=== PATIENT | male | born 1950 | race Caucasian/White ===

== ENCOUNTER 2020-06-23 16:03 | Emergency (ER) | payer OTHER ==
--- NOTE | 2020-06-23 17:41 | ER ---
Nurse's Notes [facility] Name: Huan Haynes Sr Age: 70 yrs Sex: Male : 1950 Arrival Date: 06/23/2020 Time: 16:09 Bed 18 Private MD: Diagnosis: Pain in left shoulder Presentation: 06/23 16:16 Chief complaint: Patient states: Left shoulder pain continues since fall April 12. Saw ll1 Dr. Bolaños initially, x-ray was negative. No new trauma or falls. PMS intact. Coronavirus screen: Client denies travel out of the [place] in the last 14 days. At this time, the client does not indicate any symptoms associated with coronavirus-19. Ebola Screen: Patient denies travel to an Ebola-affected area in the 21 days before illness onset. Initial Sepsis Screen: Does the patient meet any 2 criteria? No. Patient's initial sepsis screen is negative. Risk Assessment: Do you want to hurt yourself or someone else? Patient reports no desire to harm self or others. Onset of symptoms was April 12, 2020. 16:16 Method Of Arrival: Ambulatory [facility] 16:16 Acuity: MICHELINE 4 ll1 Historical: - Allergies: 16:19 No Known Allergies; ll1 - PMHx: 16:19 Hypertension; High Cholesterol; ll1 - PSHx: 16:19 Hernia repair; back surgery; ll1 - Immunization history:: Flu vaccine is up to date. - Social history:: Smoking status: Patient denies any tobacco usage or history of. Patient/guardian denies using alcohol, street drugs. Screenin:00 Abuse screen: Denies threats or abuse. Denies injuries from another. Nutritional jr10 screening: No deficits noted. Tuberculosis screening: No symptoms or risk factors identified. Fall Risk None identified. Assessment: 18:00 General: Appears in no apparent distress. Behavior is calm, cooperative, appropriate jr10 for age. Pain: Complains of pain in anterior aspect of left shoulder and posterior aspect of left shoulder Pain began 2 months. Respiratory: Airway is patent Respiratory effort is even, unlabored, Respiratory pattern is regular, symmetrical. Derm: No deficits noted. No signs and/or symptoms reported regarding the dermatologic system. Musculoskeletal: No deficits noted. Circulation, motion, and sensation intact. Capillary refill < 3 seconds, Range of motion: intact in all extremities, Swelling absent. Vital Signs: 16:16 BP 141 / 102; Pulse 74; Resp 18; Temp 98.2; Pulse Ox 98% ; Weight 107.95 kg; Height 5 ll1 ft. 8 in. (172.72 cm); Pain 6/10; 18:18 BP 152 / 98; Pulse 75; Resp 18; Pulse Ox 98% ; jr10 16:16 Body Mass Index 36.19 (107.95 kg, 172.72 cm) 1 ED Course: 16:09 Patient arrived in ED. mr 16:18 Triage completed. ll1 16:19 Arm band placed on. 1 17:22 Shaquille Quinones PA is PHCP. [facility] 17:22 Hayder Johnson MD is Attending Physician. [facility] 17:40 Lev Figueroa MD is Referral Physician. enrique 17:57 Jeanne Abel, AWILDA is Primary Nurse. jr10 18:00 Patient has correct armband on for positive identification. Bed in low position. Call jr10 light in reach. Side rails up X2. 18:18 No provider procedures requiring assistance completed. Patient did not have IV access jr10 during this emergency room visit. Administered Medications: 18:00 Drug: morphine 4 mg Route: IM; Site: left deltoid; jr10 18:19 Follow up: Response: No adverse reaction jr10 18:00 Drug: Zofran (Ondansetron) 4 mg Route: PO; jr10 18:19 Follow up: Response: No adverse reaction [facility] Outcome: 17:41 Discharge ordered by MD. [facility] 18:19 Discharged to home ambulatory. jr10 18:19 Condition: good 18:19 Discharge instructions given to patient, Instructed on discharge instructions, follow up and referral plans. Demonstrated understanding of instructions, follow-up care, medications, Prescriptions given X 1. 18:19 Patient left the ED. jr10 Signatures: Shaquille Quinones PA PA jmm Rivera, Mary Alexis Russell, AWILDA RN 1 Jeanne Abel RN RN [facility]
--- NOTE | 2020-06-23 17:41 | EDPHYS ---
Physician Documentation [facility] Name: Huan Haynes Sr Age: 70 yrs Sex: Male : 1950 Arrival Date: 06/23/2020 Time: 16:09 Bed 18 Private MD: ED Physician Hayder Johnson HPI: 06/23 17:36 This 70 yrs old Male presents to ER via Ambulatory with complaints of Fall jmm Injury, Shoulder Pain. 17:36 Details of fall: The patient fell from an upright position. Onset: The symptoms/episode jmm began/occurred acutely, 1 month(s) ago. Associated injuries: The patient sustained shoulder pain. This is a 70 year old male with a history of htn, hlp that presents to the ED with complaints of left shoulder pain which has been ongoing since a fall in April 29. Patient states having ongoing pain. Patient asked pcp for pain medication but was declined. Patient has not seen an orthopedic surgeon since the injury. Denies any new injury. Denies chest pain. . Historical: - Allergies: 16:19 No Known Allergies; ll1 - PMHx: 16:19 Hypertension; High Cholesterol; ll1 - PSHx: 16:19 Hernia repair; back surgery; ll1 - Immunization history:: Flu vaccine is up to date. - Social history:: Smoking status: Patient denies any tobacco usage or history of. Patient/guardian denies using alcohol, street drugs. ROS: 17:36 Constitutional: Negative for fever, chills, and weight loss, Cardiovascular: Negative jmm for chest pain, palpitations, and edema, Respiratory: Negative for shortness of breath, cough, wheezing, and pleuritic chest pain. 17:36 MS/extremity: Positive for injury or acute deformity. 17:36 All other systems are negative. Exam: 17:36 Constitutional: This is a well developed, well nourished patient who is awake, alert, jmm and in no acute distress. Head/Face: atraumatic. Eyes: EOMI, no conjunctival erythema appreciated ENT: Moist Mucus Membranes Neck: Trachea midline, Supple Chest/axilla: Normal chest wall appearance and motion. Cardiovascular: Regular rate and rhythm. No edema appreciated Respiratory: Normal respirations, no respiratory distress appreciated Abdomen/GI: Non distended, soft Back: Normal ROM Skin: General appearance color normal 17:36 Neuro: Awake and alert, normal gait Psych: Behavior is normal, Mood is normal, Patient is cooperative and pleasant 17:36 Musculoskeletal/extremity: ROM: intact in all extremities, painful abduction, full baker pastry strength, no obvious deformity, compartments are soft, full radial pulse, NVI. Vital Signs: 16:16 BP 141 / 102; Pulse 74; Resp 18; Temp 98.2; Pulse Ox 98% ; Weight 107.95 kg; Height 5 ll1 ft. 8 in. (172.72 cm); Pain 6/10; 18:18 BP 152 / 98; Pulse 75; Resp 18; Pulse Ox 98% ; jr10 16:16 Body Mass Index 36.19 (107.95 kg, 172.72 cm) ll1 MDM: 17:33 Patient medically screened. [facility] 17:39 Data reviewed: vital signs, nurses notes. Counseling: I had a detailed discussion with enrique the patient and/or guardian regarding: the historical points, exam findings, and any diagnostic results supporting the discharge/admit diagnosis, the need for outpatient follow up, to return to the emergency department if symptoms worsen or persist or if there are any questions or concerns that arise at home. ED course: No new injury. patient is advised to follow up with ortho. I do not suspect ACS. No chest pain, no shortness of breath, symptoms have been ongoing since the injury. I suspect soft tissue injury. Patient is otherwise given strict return precautions. Patient understood and agrees with the plan of care. . Administered Medications: 18:00 Drug: morphine 4 mg Route: IM; Site: left deltoid; [facility] 18:19 Follow up: Response: No adverse reaction [facility] 18:00 Drug: Zofran (Ondansetron) 4 mg Route: PO; jr10 18:19 Follow up: Response: No adverse reaction [facility] Disposition: 06/23/20 17:41 Discharged to Home. Impression: Pain in left shoulder. - Condition is Stable. - Discharge Instructions: Shoulder Pain. - Prescriptions for orphenadrine citrate 100 mg Oral Tablet Sustained Release - take 1 tablet by ORAL route 2 times per day As needed; 20 tablet. - Medication Reconciliation Form, Thank You Letter, Antibiotic Education, Prescription Opioid Use form. - Follow up: Lev Figueroa MD; When: 2 - 3 days; Reason: Recheck today's complaints, Continuance of care, Re-evaluation by your physician. Addendum: 06/24/2020 19:50 Co-signature as Attending Physician, Hayder Johnson MD I agree with the assessment and k dr plan of care. Signatures: Hayder Johnson MD MD [facility] Shaquille Quinones PA PA jmm Lewis, Lynsay, RN RN ll1 Jeanne Abel RN RN jr10 Corrections: (The following items were deleted from the chart) 06/23 18:19 17:41 06/23/2020 17:41 Discharged to Home. Impression: Pain in left shoulder. Condition jr10 is Stable. Forms are Medication Reconciliation Form, Thank You Letter, Antibiotic Education, Prescription Opioid Use. Follow up: Lev Figueroa; When: 2 - 3 days; Reason: Recheck today's complaints, Continuance of care, Re-evaluation by your physician. enrique
[2020-06-23] MEDS ORDERED: MORPHINE 4 MG/ML SYR ONE (18:11)
[2020-06-23] MEDS ORDERED: ONDANSETRON 4 MG (ODT) TAB ONE (18:12)
== END 2020-06-23 18:19 | disposition home or self-care (01) ==
LOC: ER 16:03
DX: M25.512 Pain in left shoulder (principal); I10 Essential (primary) hypertension
CPT/HCPCS: 96372; 99283